=== PATIENT | male | born 1980 | race Hispanic/Latino ===

== ENCOUNTER 2017-01-21 22:37 | Emergency (ER) | payer OTHER ==
[2017-01-21 22:47] VITALS: RESP 18; TEMP 98.8
[2017-01-21] MEDS ORDERED: Sodium Chloride 0.9% 1,000 ML IV STA (23:29)
[2017-01-21 23:35] VITALS: O2SAT 97
--- NOTE | 2017-01-21 23:46 | ED PDOC ---
HPI: Psych/Substance Abuse Time Seen by Provider: 01/21/17 22:44 Chief Complaint (Nursing): Psychiatric Evaluation Chief Complaint (Provider): Suicidal ideation, Epigastric abdominal pain, alcohol withdrawal ED Caveat: Intoxicated History Per: Patient, EMS History/Exam Limitations: no limitations Onset/Duration Of Symptoms: Days Suicide/Self Injury Attempted (Context): None Modifying Factor(s): Alcohol Severity: Severe Pain Scale Rating Of: 8 Associated Symptoms: Suicidal Thoughts, Suicidal Plan Additional History Per: Patient, Prior Records Additional Complaint(s): Patient is a 36 y/o male with a past medical history of Pancreatitis and chronic alcohol abuse, who was brought to the ED by EMS complaining of suicidal ideation, epigastric pain radiating to the back, and alcohol withdrawal. Patient was seen and evaluated by crisis at [facility] for similar symptoms , and was discharged without any medications or prescriptions before eventually calling EMS which brought him to this facility. Patient claims he did not receive any medications at [facility]. According to EMS report, patient report states only suicidal ideation as complaint. Immediately upon arrival, patient denied any suicidal ideation and rejected the EMS claim, but he eventually retracted his statement and admitted to suicidal ideation. He claims his plan was to use his belt to strangle himself, and that he has had suicidal ideation for several years. With regards to his epigastric pain, patient claims the pain comes and goes, and notes that he has a history of Pancreatitis which causes similar pain at times and pancreatic complications for past 4 years. Patient reports that he was receiving narcotics in the past for his pain and that narcotics are the only medications that help. Patient also reports 2 episodes of non-bloody vomiting earlier today and a few episodes of diarrhea. With regards to Alcohol withdrawal, patient says he drinks daily and last drank at 08:00 this morning. He reports feeling shaky, dehydrated, and anxious. I reviewed previous chart and report from [facility] on 01/21/17. PMD: Provider JOSE Past Medical History Reviewed: Historical Data, Nursing Documentation, Vital Signs Vital Signs: Last Vital Signs Temp 98.8 F 01/21/17 22:39 Pulse 104 H 01/21/17 23:35 Resp 18 01/21/17 23:35 BP 132/76 01/21/17 22:39 Pulse Ox 97 01/21/17 23:35 - Medical History PMH: Bipolar Disorder, Gastritis, HTN, Pancreatitis, Schizophrenia Denies: Chronic Kidney Disease Other PMH: Alcohol withdrawal - Surgical History Surgical History: No Surg Hx - Family History Family History: States: No Known Family Hx, Unknown Family Hx - Social History Current smoker - smoking cessation education provided: Yes (< 10 cigarettes daily, smoker for 20 years) Alcohol: Occasional Drugs: Denies - Immunization History Hx Tetanus Toxoid Vaccination: No Hx Influenza Vaccination: No Hx Pneumococcal Vaccination: No - Home Medications Home Medications: Ambulatory Orders Medication Instructions Recorded Clonidine HCl [Catapres] 0.2 tab PO BID 01/03/17 Lisinopril [Zestril] 40 tab PO DAILY 01/03/17 Multivitamins [Hexavitamin] 1 tab PO DAILY tab 01/08/17 Thiamine [Vitamin B1 Tab] 100 mg PO DAILY #30 tab 01/08/17 - Allergies Allergies/Adverse Reactions: Allergies Allergy/AdvReac Type Severity Reaction Status Date / Time No Known Allergies Allergy Verified 01/21/17 18:43 Review of Systems ROS Statement: Except As Marked, All Systems Reviewed And Found Negative Gastrointestinal: Positive for: Vomiting, Abdominal Pain (epigastric), Diarrhea. Negative for: Hematemesis Psych: Positive for: Suicidal ideation, Withdrawal (Alcohol withdrawal) Physical Exam - Reviewed Nursing Documentation Reviewed: Yes Vital Signs Reviewed: Yes - Physical Exam Appears: Positive for: No Acute Distress Head Exam: Positive for: ATRAUMATIC, NORMOCEPHALIC Skin: Positive for: Normal Color, Warm, Dry Eye Exam: Positive for: Normal appearance, EOMI, PERRL ENT: Positive for: Normal ENT Inspection Neck: Positive for: Normal, Painless ROM, Supple Cardiovascular/Chest: Positive for: Tachycardia. Negative for: Murmur Respiratory: Positive for: Normal Breath Sounds. Negative for: Respiratory Distress Gastrointestinal/Abdominal: Positive for: Soft, Tenderness (Epigastric tenderness) Back: Positive for: Normal Inspection. Negative for: L CVA Tenderness, R CVA Tenderness, Vertebral Tenderness Extremity: Positive for: Normal ROM. Negative for: Pedal Edema Neurologic/Psych: Positive for: Alert, Oriented (x3), Mood/Affect (calm and cooperative). Negative for: Motor/Sensory Deficits - Laboratory Results Result Diagrams: 01/21/17 23:57 01/21/17 23:57 - ECG O2 Sat by Pulse Oximetry: 97 (RA) Pulse Ox Interpretation: Normal Medical Decision Making Medical Decision Making: Time: 23:28 Initial Impression: 1) suicidal ideation 1) abdominal pain 3) Alcohol withdrawal Differential Diagnoses: Pancreatitis, gastritis Initial Plan: -CT Abdomen/Pelvis -Alcohol Serum -Labs -Crisis Eval -Dextrose 5%/0.45% NS, Multivitamin 10ml, Folic Acid 1mg, Thiamine 100mg, IV 120 mls/hr -Librium 50mg PO -Sodium Chloride 0.9% 1,000ml, 1,000 mls/hr -Famotidine 20mg IVP -Toradol 30mg IVP -Zofran Inj 4mg IV -1:1 Obs 2330 Per crisis patient can be cleared for discharge by Dr Lopez. Scribe Attestation: Documented by Adrian Wright, acting as a scribe for Ana Campoverde MD Provider Scribe Attestation: All medical record entries made by the Scribe were at my direction and personally dictated by me. I have reviewed the chart and agree that the record accurately reflects my personal performance of the history, physical exam, medical decision making, and the department Disposition - Clinical Impression Clinical Impression: Alcohol abuse, Pancreas cyst, Alcohol intoxication, Substance abuse - Patient ED Disposition Is Patient to be Admitted: Transfer of Care Counseled Patient/Family Regarding: Studies Performed, Diagnosis - Disposition Referrals: [facility] [Outside] [facility] [Outside] Zaki Fernandez MD, PhD [Staff Provider] - Disposition: Transfer of Care Disposition Time: 00:00 Condition: STABLE Additional Instructions: follow up with your primary doctor/GI doctor in 1-2 days to further evaluate pancreas cyst return to the ED with any worsening or concerning symptoms. Instructions: Abuse of Alcohol (ED), Cyst (ED) Forms: [employer] (Japanese) Patient Signed Over To: Isaiah Ansari
[2017-01-21] MEDS ORDERED: Iohexol 300 100 ML IJ ONE (23:48)
[2017-01-21] MEDS ORDERED: Sodium Chloride 0.9% 50 ML IV ONE (23:48)
[2017-01-21] MEDS ORDERED: Multivitamin (MVI) 10 ML, Folic Acid 1 MG, Thiamine 100 MG in Dextrose 5%/0.45% NS 1,00... IV ONE (23:51)
[2017-01-22] LABS: BASO % 0.8 % (0.0-2.0); EOS # 0.1 K/uL (0.0-0.7); EOS % 2.3 % (0.0-4.0); HEMATOCRIT 44.9 % (35.0-51.0); LYMPH # 1.6 K/uL (1.0-4.3); LYMPH % 28.6 % (20.0-40.0); MEAN CELL VOLUME 93.4 fl (80.0-94.0); MEAN CORPUSCULAR HEMOGLOBIN 31.2 pg (27.0-31.0); MEAN CORPUSCULAR HGB CONC 33.4 g/dL (33.0-37.0); MEAN PLATELET VOLUME 7.5 fl (7.2-11.7); MONO # 0.4 K/uL (0.0-0.8); MONO % 6.8 % (0.0-10.0); NEUT # 3.4 K/uL (1.8-7.0); NEUT % 61.5 % (50.0-75.0); NRBC % 0.2 % (0.0-0.0); RED CELL DISTRIBUTION WIDTH 18.3 % (11.5-14.5); WHITE BLOOD COUNT 5.5 K/uL (4.8-10.8)
[2017-01-22 00:15] LABS: ALB/GLOB RATIO 1.2 (1.0-2.1); ALCOHOL SERUM 255 mg/dl (0-10); ALKALINE PHOSPHATASE 102 U/L (38-126); ALT/SGPT 28 U/L (21-72); AST/SGOT 47 U/L (17-59); BILIRUBIN,TOTAL 0.3 mg/dl (0.2-1.3); BLOOD UREA NITROGEN 7 mg/dl (9-20); CALCIUM 8.4 mg/dL (8.4-10.2); CARBON DIOXIDE 26 mmol/L (22-30); CHLORIDE 102 mmol/L (98-107); GFR AFRICAN-AMERICAN > 60; GLUCOSE,RANDOM 116 mg/dL (75-110); POTASSIUM 4.2 MMOL/L (3.6-5.0); SODIUM 145 mmol/l (132-148); TOTAL PROTEIN 7.8 G/DL (6.3-8.2)
--- NOTE | 2017-01-22 00:23 | ED PDOC ---
"- Laboratory Results Result Diagrams: 01/21/17 23:57 01/21/17 23:57 - ECG O2 Sat by Pulse Oximetry: 97 (RA) Pulse Ox Interpretation: Normal Medical Decision Making Medical Decision Making: Time: 00:00 -Patient signed out to me from Dr. Ana Campoverde -Pending CT abdomen/pelvis, if negative patient will be discharged Time: 00:52 -CT abdomen/pelvis results FINDINGS: Lower thorax: The bilateral lung bases are clear. ABDOMEN: Liver: No acute findings. Gallbladder and bile ducts: The gallbladder is only minimally distended, without calcified stones. No significant intra- or extrahepatic biliary ductal dilation. Pancreas: A 4.1 x 4.3 cm thickwalled focus of decreased attenuation is identified within the head of the pancreas. Ductal dilatation with parenchymal atrophy is identified within the body and tail of the pancreas. No surrounding inflammatory changes detected. Spleen: No acute findings. Adrenals: No acute findings. Kidneys and ureters: No acute findings. No hydronephrosis or renal calculi. No discrete solid mass. PELVIS: Bladder: No acute findings. Reproductive: No acute findings. PAULA ZELAYA | Final Radiology Report CONFIDENTIALITY STATEMENT This report is intended only for use by the referring physician, and only in accordance with law. If you received this in error, call [phone]. Page 2 of 2 Appendix: The appendix is not definitively visualized, however no pericecal inflammatory change is identified to suggest the presence of acute appendicitis. ABDOMEN and PELVIS: Stomach and bowel: No obstruction. No mucosal thickening. Peritoneum: No significant fluid collection. No free air. Lymph nodes: No pathologically enlarged lymph nodes. Vasculature: Unremarkable. Bones: No acute fracture. IMPRESSION: Cystic mass within the head of the pancreas, with distal ductal dilatation and atrophy, as detailed above. Time: 01:35 -Patient has been cleared by crisis prior to me taking over for Dr. Camopverde. Patient is stable for discharge. Clinical Impression: Cyst on Pancreas and Alcohol abuse Pt with known history of pancreatic cyst. pt instructed to follow up as outpt with GI pt tolerating po and feels better Upon provider evaluation patient is medically stable, and requires no further treatment in the ED at this time. Patient will be discharged. Counseling was provided and all questions were answered regarding diagnosis and need for follow up with primary care physician as outpatient. There is agreement to discharge plan. Return if symptoms persist or worsen. Scribe Attestation: Documented by Adrian Wright, acting as a scribe for Isaiah Ansari MD Provider Scribe Attestation: All medical record entries made by the Scribe were at my direction and personally dictated by me. I have reviewed the chart and agree that the record accurately reflects my personal performance of the history, physical exam, medical decision making, and the department course for this patient. I have also personally directed, reviewed, and agree with the discharge instructions and disposition. Disposition Counseled Patient/Family Regarding: Studies Performed, Diagnosis, Need For Followup - Clinical Impression Clinical Impression: Alcohol abuse, Pancreas cyst - POA Present On Arrival: None - Disposition Referrals: [facility] [Outside] [facility] [Outside] Zaki Fernandez MD, PhD [Staff Provider] - Disposition: Routine/Home Disposition Time: 01:00 Condition: IMPROVED Additional Instructions: follow up with your primary doctor/GI doctor in 1-2 days to further evaluate pancreas cyst return to the ED with any worsening or concerning symptoms. Instructions: Abuse of Alcohol (ED), Cyst (ED) Forms: [employer] (Latvian)"
--- NOTE | 2017-01-22 00:52 | CT ---
EXAM: CT Abdomen and Pelvis With Intravenous Contrast CLINICAL HISTORY: 36 years old, male; Pain; Abdominal pain TECHNIQUE: Axial computed tomography images of the abdomen and pelvis with intravenous contrast. All CT scans at this facility use one or more dose reduction techniques, viz.: automated exposure control; ma/kV adjustment per patient size (including targeted exams where dose is matched to indication; i.e. head); or iterative reconstruction technique. Coronal and sagittal reformatted images were created and reviewed. CONTRAST: 95 mL of OMNIPAQUE 300 administered intravenously. COMPARISON: No relevant prior studies available. FINDINGS: Lower thorax: The bilateral lung bases are clear. ABDOMEN: Liver: No acute findings. Gallbladder and bile ducts: The gallbladder is only minimally distended, without calcified stones. No significant intra- or extrahepatic biliary ductal dilation. Pancreas: A 4.1 x 4.3 cm thickwalled focus of decreased attenuation is identified within the head of the pancreas. Ductal dilatation with parenchymal atrophy is identified within the body and tail of the pancreas. No surrounding inflammatory changes detected. Spleen: No acute findings. Adrenals: No acute findings. Kidneys and ureters: No acute findings. No hydronephrosis or renal calculi. No discrete solid mass. PELVIS: Bladder: No acute findings. Reproductive: No acute findings. Appendix: The appendix is not definitively visualized, however no pericecal inflammatory change is identified to suggest the presence of acute appendicitis. ABDOMEN and PELVIS: Stomach and bowel: No obstruction. No mucosal thickening. Peritoneum: No significant fluid collection. No free air. Lymph nodes: No pathologically enlarged lymph nodes. Vasculature: Unremarkable. Bones: No acute fracture. IMPRESSION: Cystic mass within the head of the pancreas, with distal ductal dilatation and atrophy, as detailed above.
[2017-01-22 01:39] VITALS: BP 126/87; PULSE 86
== END 2017-01-22 01:55 | disposition home or self-care (01) ==
LOC: H.ER 22:37
DX: F10.129 Alcohol abuse with intoxication, unspecified (principal); K86.2 Cyst of pancreas; R45.851 Suicidal ideations
CPT/HCPCS: 74177; 80053; 80320; 80324; 80345; 80346; 80349; 80353; 80358; 80361; 82948; 83992; 85025; 96361; 96374; 96375; 99284; J1885; J2405; J3411; J7040; J7042; Q9967

== ENCOUNTER 2017-01-23 23:54 | Inpatient (IN) | payer MEDICAID, OTHER ==
--- NOTE | 2017-01-24 00:20 | ED PDOC ---
Psych Transfer Clearance - Clearance Statement Clearance Statement: Dr. Clark reviewed vital signs, lab results and transfer papers and deemed patient clinically stable for psychiatric admission.
[2017-01-24] MEDS ORDERED: Magnesium Hydroxide Susp 30 ml UD PO PRN (02:00)
[2017-01-24] MEDS ORDERED: Alum-Mag Hydrox-Simethicone Susp (30 mL) PO PRN (02:00)
[2017-01-24] MEDS ORDERED: DiphenhydrAMINE 50 mg/ml Inj IM PRN (02:00)
--- NOTE | 2017-01-24 02:48 | PCM.BM ---
<Bessy Jaimes - Last Filed: 01/24/17 02:47> Treatment assets and liabiliti Patient Assests: cooperative, educated, insightful, motivated, resourceful, self -reliant, ADL independent, negotiates basic needs Patient Liabilities: live alone, physical pain, substance abuse, medical problems - Milieu Protocol Maintain good personal hygiene: daily Encourage regular showers, other Remind patient to perform daily oral care Conduct patient checks and document Observation sheet: Q15 minutes Maintain personal safety: every shift Educate patient to report safety concerns to staff, every shift Monitor environment for contraband/sharps Medication safety: Monitor for expected outcome, potential side effects: every shift, Assess barriers to learning: every shift, Assess readiness for medication education: every shift <Anthony Coats - Last Filed: 01/27/17 08:39> Family Contact Family involvement: Family/SO is involved Family contact: Patient agrees to contact, Family has been contacted by patient , Telephone contact initiated by staff Family contact name: Haily Magaña (mother) - [phone] Family contacted how many times per week?: 7 Family contact comment: Pick Up Attendant spoke with pt's mother, Haily Magaña ([phone]), to gather collateral and update her on pt's current disposition on and 01/26. Pt's mother is extremely concerned with pt's drinking and is worried that it will kill him if pt does not stp using alcohol. Pt's mother already know that pt's drinking is having an effect on his health as exhibited by his current pancreatic cyst. Pt's mother reported that pt has either lost his job or will lose it after this hospitalization due to poor attendance. Pt's mother reported that she has cut pt off financially and will not allow the pt to reside with her as he steals from her and has pawned her jewelry in the past. Pt's mother reported that he does have a girlfriend who resides mainly in [place] and that they have a very toxic relationship. Pt's mother reported that pt will threaten suicide if the girlfriend ever leaves him. Pt's mother fears that if this relationship ends pt will drink enough that he might kill himself. Pt's mother is concerned because pt has had suicide attempts in the past and reported that pt received ECT at [facility] in the past. Pt's mother reported thta pt has never seemed outwardly severely depressed despite the fact that he received ECT. Pt's mother seems unable to come to terms with the fact that her son is help rejecting and does not understand that no one can force him to stay and receive treatment unless he wants to. Pt's mother was informed that pt was referred to residential rehabs and is being put on waiting lists. - Goals for Treatment Patient goals for treatment: Pt seems ambivalent toward treatment and stated that he would like help to stop his alcohol use, yet makes excuses why he cannot enter into rehab and has signed a 48 hour notice despite still experiencing withdrawal symptoms. Patient's family/SO goals for treatment: Pt's mother would like pt to enter into a long-term rehab. She is fearful that if he does not stop drinking that he will . Discharge/Continuing Care - Education Needs Education Needs: Family Medication, Family Diagnosis/Disease Process, Family Placement options, Patient Medication, Patient Diagnosis/Disease Process, Patient Coping Skills, Patient Anger Management skills, Patient Placement options, Patient Personal Hygiene/Grooming, Patient Aftercare Safety Plan - Discharge Discharge Criteria: Tolerates medication w/o severe side effects, Free of Suicidal thoughts, Free of agitation, Normal sleep pattern, No longer exhibiting s/s of withdrawal, Reduction of target symptoms Discharge to:: Home - Treatment Team Participation Patient/Family/SO Statement: 01/27/17 08:37 Pt was agreeable to rescinding his 48 hour notice once staff spoke to him about staying through the weekend to continue to reduce withdrawal symptoms and try to set up more formal aftercare plan. Pt was agreeable but was adamant that he would not stay past Sunday. Discussed with Family/SO: Yes Was Patient/Family/SO present at Treatment Team Meeting: Yes
[2017-01-24 09:54] LABS: CHOLESTEROL 168 mg/dL (0-199)
--- NOTE | 2017-01-24 15:52 | CP.PCM.CON ---
History of Present Illness - History of Present Illness History of Present Illness: Juancarlos Segura is a pleasant 36 yo male with pmhx of alcohol abuse, Pancreatic cyst, Pancreatitis, HTN was transferred from [facility] for concurrent management of his epigastric pain secondary to pancreatic cyst and alcohol withdrawal. He was seen at bedside, resting. He shares of N/V with epigastric pain. 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 Fhx: HTN, DM, mom with skin CA Review of Systems - Gastrointestinal Gastrointestinal: Abdominal Pain, Nausea, Vomiting Additional comments: epigastric Past Patient History - Past Medical History & Family History Past Medical History?: Yes - Past Social History Smoking Status: Light Smoker < 10 Cigarettes Daily 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 Alcohol: > 2 Drinks/Day Home Situation {Lives}: Roommate - CARDIAC Hx Hypertension: Yes - PULMONARY Hx Respiratory Disorders: No - NEUROLOGICAL Hx Neurological Disorder: No - HEENT Hx HEENT Problems: No - RENAL Hx Chronic Kidney Disease: No - ENDOCRINE/METABOLIC Hx Endocrine Disorders: No - HEMATOLOGICAL/ONCOLOGICAL Hx Blood Transfusions: No - INTEGUMENTARY Hx Dermatological Problems: No - MUSCULOSKELETAL/RHEUMATOLOGICAL Hx Falls: No - GASTROINTESTINAL Hx Gastritis: Yes Hx Pancreatitis: Yes Other/Comment: pancreatic cyst - GENITOURINARY/GYNECOLOGICAL Hx Genitourinary Disorders: No - PSYCHIATRIC Hx Substance Use: No - SURGICAL HISTORY Hx Surgeries: No - ANESTHESIA Hx Anesthesia: No Hx Anesthesia Reactions: No Hx Malignant Hyperthermia: No Meds Allergies/Adverse Reactions: Allergies Allergy/AdvReac Type Severity Reaction Status Date / Time No Known Allergies Allergy Verified 01/21/17 18:43 - Medications Medications: Current Medications Acetaminophen (Tylenol 325mg Tab) 650 mg PO Q4 PRN PRN Reason: Pain, moderate (4-7) Al Hydrox/Mg Hydrox/Simethicone (Maalox Plus 30 Ml) 30 ml PO Q4 PRN PRN Reason: Dyspepsia Chlordiazepoxide (Librium) 50 mg PO Q8 EVELINA PRN Reason: Protocol Last Admin: 01/24/17 10:44 Dose: 50 mg Chlordiazepoxide (Librium) 25 mg PO Q6 PRN PRN Reason: Systolic Blood Pressure Last Admin: 01/24/17 13:02 Dose: 25 mg Diphenhydramine HCl (Benadryl) 50 mg IM Q6 PRN PRN Reason: Extrapyramidal S/S Unable PO Diphenhydramine HCl (Benadryl) 50 mg PO Q6 PRN PRN Reason: Extrapyramidal Symptoms Diphenhydramine HCl (Benadryl) 50 mg PO HS PRN PRN Reason: Sleep Fluoxetine HCl (Prozac) 40 mg PO DAILY EVELINA Last Admin: 01/24/17 13:02 Dose: 40 mg Haloperidol (Haldol) 5 mg PO Q4 PRN PRN Reason: Agitation Haloperidol Lactate (Haldol) 5 mg IM Q4 PRN PRN Reason: Agitation, Unable to Take PO Magnesium Hydroxide (Milk Of Magnesia) 30 ml PO HS PRN PRN Reason: Constipation Physical Exam - Constitutional Appears: Well - Eye Exam Eye Exam: EOMI, Normal appearance - Respiratory Exam Respiratory Exam: Clear to Auscultation Bilateral, NORMAL BREATHING PATTERN - Cardiovascular Exam Cardiovascular Exam: REGULAR RHYTHM, +S1, +S2 - GI/Abdominal Exam GI & Abdominal Exam: Normal Bowel Sounds, Soft, Tenderness Additional comments: epigastric tenderness - Extremities Exam Extremities exam: Negative for: calf tenderness - Neurological Exam Neurological exam: Alert, CN II-XII Intact, Oriented x3 - Psychiatric Exam Psychiatric exam: Normal Affect, Normal Mood Results - Vital Signs Recent Vital Signs: Last Vital Signs Temp 97.5 F L 01/24/17 09:00 Pulse 85 01/24/17 09:00 Resp 18 01/24/17 09:00 BP 151/118 H 01/24/17 09:00 Pulse Ox 98 01/23/17 23:59 - Labs Result Diagrams: 01/24/17 15:50 Labs: Laboratory Results - last 24 hr 01/24/17 09:30 Triglycerides 109 Cholesterol 168 LDL Cholesterol Direct 64 HDL Cholesterol 91 H Assessment & Plan - Assessment and Plan (Free Text) Plan: Juancarlos Segura is a pleasant 36 yo male with pmhx of alcohol abuse, Pancreatic cyst, Pancreatitis, HTN was transferred from [facility] for concurrent management of his epigastric pain secondary to pancreatic cyst and alcohol withdrawal. 1) Epigastric pain -history of pancreatic cyst and pancreatitis -Lipase: level 66 -CBC ordered -Stable; no signs of pancreatitis 2) HTN -Metoprolol; Pt states not taking clonidine for 1 month. -continue monitoring vitals -2/2 alcohol withdrawal 3) Alcohol withdrawal -Librium -Continue to monitor signs and symptoms. Guru Wang, PGY1
[2017-01-24 16:26] LABS: HEMATOCRIT 42.4 % (35.0-51.0); MEAN CELL VOLUME 95.4 fl (80.0-94.0); MEAN CORPUSCULAR HGB CONC 32.5 g/dL (33.0-37.0); RED CELL DISTRIBUTION WIDTH 17.7 % (11.5-14.5)
--- NOTE | 2017-01-24 18:25 | PCM.PSYCH ---
Initial Psychiatric Evaluation - Initial Psychiatric Evaluation Type of Admission: Voluntary Chief Complaint (in patient's own words): I have thoughts to hurt myself i need help Patient's Reaction to Hospitalization: patient requesting help History of Present Illness and Precipitating Events: patient with previous diagnosis of depression anxiety and alcohol use disorder patient has been increasingly depressed relapsed on alcohol using three pints of vodka daily unable to function in his job patient,patient also was having severe pain due to chronic pancreatitis he started to have suicidal ideations with plan to overdose , presented to [facility] seeking help denied manic symptoms denied psychotic symptoms Current Medications: Active Medications Generic Name Dose Route Start Last Admin Trade Name Freq PRN Reason Stop Dose Admin Acetaminophen 650 mg 01/24/17 02:00 Tylenol 325mg Tab PO Q4 PRN Pain, moderate (4-7) Al Hydrox/Mg Hydrox/Simethicone 30 ml 01/24/17 02:00 Maalox Plus 30 Ml PO Q4 PRN Dyspepsia Chlordiazepoxide 50 mg 01/24/17 10:45 01/24/17 17:30 Librium PO 50 mg Q8 EVELINA Administration Protocol Chlordiazepoxide 25 mg 01/24/17 10:38 01/24/17 13:02 Librium PO 25 mg Q6 PRN Administration Systolic Blood Pressure Diphenhydramine HCl 50 mg 01/24/17 02:00 Benadryl IM Q6 PRN Extrapyramidal S/S Unable PO Diphenhydramine HCl 50 mg 01/24/17 02:00 Benadryl PO Q6 PRN Extrapyramidal Symptoms Diphenhydramine HCl 50 mg 01/24/17 02:03 Benadryl PO HS PRN Sleep Fluoxetine HCl 40 mg 01/24/17 11:00 01/24/17 13:02 Prozac PO 40 mg DAILY EVELINA Administration Haloperidol 5 mg 01/24/17 02:00 Haldol PO Q4 PRN Agitation Haloperidol Lactate 5 mg 01/24/17 02:00 Haldol IM Q4 PRN Agitation, Unable to Take PO Lisinopril 40 mg 01/25/17 09:00 Zestril PO DAILY [facility]ELINA Magnesium Hydroxide 30 ml 01/24/17 02:00 Milk Of Magnesia PO HS PRN Constipation Metoprolol Tartrate 25 mg 01/24/17 21:00 Lopressor PO Q12 EVELINA Thiamine HCl 100 mg 10/12/17 09:00 Vitamin B1 Tab PO DAILY EVELINA Tramadol HCl 50 mg 01/24/17 16:38 Ultram PO Q6 PRN Pain, moderate (4-7) Past Psychiatric History - Past Psychiatric History Prior Psychiatric Treatment: multiple inpatient admissions for depression and alcohol rehab History of Abuse: deneid History of ETOH/Drug Use: history of alcohol use since age 18 history of black out DT and withdrawal seizures Pertinent Medical Hx (Current Medical&Sleep Prob, Allergies): Allergies Allergy/AdvReac Type Severity Reaction Status Date / Time No Known Allergies Allergy Verified 01/21/17 18:43 Clonidine HCl [Catapres] 0.2 tab PO BID 01/03/17 Lisinopril [Zestril] 40 tab PO DAILY 01/03/17 Multivitamins [Hexavitamin] 1 tab PO DAILY tab 01/08/17 Thiamine [Vitamin B1 Tab] 100 mg PO DAILY #30 tab 01/08/17 Mental Status Examination - Personal Presentation Personal Presentation: Looks older than stated age - Affect Affect: Depressed - Motor Activity Motor Activity: Psychomotor Retardation - Reliability in Providing Information Reliability in Providing Information: Fair - Speech Speech: Organized - Mood Mood: Depressed, Anxious - Formal Thought Process Formal Thought Process: No Impairment Additional comments: denied any current perceptual disturbances non elicited - Hallucinations/Delusions Additional comments: denied perceptual disturbances non elicited - Obsessions/Compulsions Obsessions: No Compulsions: No - Cognitive Functions Orientation: Person, Place Sensorium: Alert Attention/Concentration: Attentive Estimate of Intelligence: Average Judgement: Imparied, as evidence by: Lack of insight into illness Memory: Recent intact, as evidence by: Ability to recall events of the day - Risk Risk: Suicidal, Seizure, Withdrawal - Strength & Assets Inventory Strength & Assets Inventory: Employment status - Limitations Additional comments: medical problems DSM 5 DX - DSM 5 DSM 5 Diagnosis: major depression alcohol use disorder alcoho; induced mood disorder with depressive features - Recommended/Plan of Treatment Treatment Recommendations and Plan of Treatment: patient will be started on librium protocol for risk of withdrawal prozac 40 mg will be monitored for psychopharmacological effects and side effect profile patient will be offered inpatient rehab on discharge Prognosis: guarded Discharge Plan and Discharge Criteria: patient mood stable
[2017-01-25 01:29] VITALS: O2SAT 99
--- NOTE | 2017-01-25 18:38 | PCM.PYCHPN ---
Psychiatric Progress Note - Psychiatric Progress Note Patient seen today, length of contact: patient evaluated discussed with team chart reviewed 30min Patient Chief Complaint: I only need help with my medical problem i do not need to be here Problems Identified/Issues Discussed: patient currently on librium protocol, no symptoms or signs of alcohol with drawal, seen on unit attending groups patient however denied any current thought to hurt self denied suicidal or homicidal ideations patient reported concerned in reference to the pancreatic cyst , patient has been evaluated by medical consult and at current time no symptoms of acute pancreatitis and no recommendation for GIT consult labs reviewed lipase 66 advised patient GIT for outpatient follow up consult on discharge advised patient need for inpatient alcohol rehab on discharge motivational interviewing provided and patient educated about the risk of relapse on alcohol patient denied any current perceptual disturbances DSM 5 Symptoms Update: major depression alcohol use disorder alcoho;l induced mood disorder with depressive features Medication Change: Yes (librium prrotocol taper) Medical Record Reviewed: Yes Mental Status Examination - Cognitive Function Orientation: Person, Place Memory: Intact Attention: WNL Concentration: WNL Association: WNL Fund of Knowledge: WNL - Mood Mood: Neutral - Affect Affect: Constricted, Depressed - Formal Thought Process Formal Thought Process: No Impairment Psychotic Thoughts and Behaviors: patient denied any current psychotic symptoms non elicited - Suicidal Ideation Suicidal Ideation: No - Homicidal Ideation Homicidal Ideation: No Goal/Treatment Plan - Goal/Treatment Plan Need for Continued Stay: Discharge may exacerbated symptoms Progress Toward Problem(s) and Goals/Treatment Plan: patient will be continued on librium protocol for risk of withdrawal with gradual taper prozac 40 mg will be monitored for psychopharmacological effects and side effect profile patient will be offered inpatient rehab on discharge
--- NOTE | 2017-01-26 13:41 | CP.PCM.PN ---
Objective - Vital Signs/Intake and Output Vital Signs (last 24 hours): Temp Pulse Resp BP Pulse Ox 97.0 F L 64 16 146/98 H 99 01/26/17 09:00 01/26/17 09:43 01/26/17 09:00 01/26/17 09:43 01/25/17 01:10 - Medications Medications: Current Medications Acetaminophen (Tylenol 325mg Tab) 650 mg PO Q4 PRN PRN Reason: Pain, moderate (4-7) Al Hydrox/Mg Hydrox/Simethicone (Maalox Plus 30 Ml) 30 ml PO Q4 PRN PRN Reason: Dyspepsia Chlordiazepoxide (Librium) 25 mg PO Q8@0600,1400,2200 [facility] Last Admin: 01/26/17 06:49 Dose: 25 mg Chlordiazepoxide (Librium) 25 mg PO Q6 PRN PRN Reason: Anxiety Last Admin: 01/25/17 19:58 Dose: 25 mg Diphenhydramine HCl (Benadryl) 50 mg IM Q6 PRN PRN Reason: Extrapyramidal S/S Unable PO Diphenhydramine HCl (Benadryl) 50 mg PO Q6 PRN PRN Reason: Extrapyramidal Symptoms Diphenhydramine HCl (Benadryl) 50 mg PO HS PRN PRN Reason: Sleep Last Admin: 01/25/17 21:06 Dose: 50 mg Fluoxetine HCl (Prozac) 40 mg PO DAILY [facility] Last Admin: 01/26/17 09:44 Dose: 40 mg Haloperidol (Haldol) 5 mg PO Q4 PRN PRN Reason: Agitation Haloperidol Lactate (Haldol) 5 mg IM Q4 PRN PRN Reason: Agitation, Unable to Take PO Lisinopril (Zestril) 40 mg PO DAILY [facility] Last Admin: 01/26/17 09:43 Dose: 40 mg Magnesium Hydroxide (Milk Of Magnesia) 30 ml PO HS PRN PRN Reason: Constipation Metoprolol Tartrate (Lopressor) 50 mg PO Q12 [facility] Last Admin: 01/26/17 09:42 Dose: 50 mg Thiamine HCl (Vitamin B1 Tab) 100 mg PO DAILY [facility] Last Admin: 01/26/17 09:43 Dose: 100 mg Tramadol HCl (Ultram) 50 mg PO Q6 PRN PRN Reason: Pain, moderate (4-7) Last Admin: 01/26/17 13:13 Dose: 50 mg Trimethobenzamide HCl (Tigan) 300 mg PO Q8 PRN PRN Reason: Nausea/Vomiting Last Admin: 01/26/17 13:14 Dose: 300 mg - Labs Labs: 01/24/17 15:50
--- NOTE | 2017-01-26 13:44 | CP.PCM.CON ---
History of Present Illness - History of Present Illness History of Present Illness: Pt seen and examined at bedside. He just finished breakfast. He shares of abdominal pain that has been consistent. He shares of nausea and vomiting but not since last night. Denies: blurred vision, CP/SOB/Dizziness. 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 [employer] Alcohol: > 2 Drinks/Day Home Situation {Lives}: Roommate - CARDIAC Hx Hypertension: Yes - PULMONARY Hx Respiratory Disorders: No - NEUROLOGICAL Hx Neurological Disorder: No - HEENT Hx HEENT Problems: No - RENAL Hx Chronic Kidney Disease: No - ENDOCRINE/METABOLIC Hx Endocrine Disorders: No - HEMATOLOGICAL/ONCOLOGICAL Hx Blood Transfusions: No - INTEGUMENTARY Hx Dermatological Problems: No - MUSCULOSKELETAL/RHEUMATOLOGICAL Hx Falls: No - GASTROINTESTINAL Hx Gastritis: Yes Hx Pancreatitis: Yes Other/Comment: pancreatic cyst - GENITOURINARY/GYNECOLOGICAL Hx Genitourinary Disorders: No - PSYCHIATRIC Hx Substance Use: No - SURGICAL HISTORY Hx Surgeries: No - ANESTHESIA Hx Anesthesia: No Hx Anesthesia Reactions: No Hx Malignant Hyperthermia: No Meds Allergies/Adverse Reactions: Allergies Allergy/AdvReac Type Severity Reaction Status Date / Time No Known Allergies Allergy Verified 01/21/17 18:43 - Medications Medications: Current Medications Acetaminophen (Tylenol 325mg Tab) 650 mg PO Q4 PRN PRN Reason: Pain, moderate (4-7) Al Hydrox/Mg Hydrox/Simethicone (Maalox Plus 30 Ml) 30 ml PO Q4 PRN PRN Reason: Dyspepsia Chlordiazepoxide (Librium) 25 mg PO Q8@0600,1400,2200 [facility] Last Admin: 01/26/17 06:49 Dose: 25 mg Chlordiazepoxide (Librium) 25 mg PO Q6 PRN PRN Reason: Anxiety Last Admin: 01/25/17 19:58 Dose: 25 mg Diphenhydramine HCl (Benadryl) 50 mg IM Q6 PRN PRN Reason: Extrapyramidal S/S Unable PO Diphenhydramine HCl (Benadryl) 50 mg PO Q6 PRN PRN Reason: Extrapyramidal Symptoms Diphenhydramine HCl (Benadryl) 50 mg PO HS PRN PRN Reason: Sleep Last Admin: 01/25/17 21:06 Dose: 50 mg Fluoxetine HCl (Prozac) 40 mg PO DAILY [facility] Last Admin: 01/26/17 09:44 Dose: 40 mg Haloperidol (Haldol) 5 mg PO Q4 PRN PRN Reason: Agitation Haloperidol Lactate (Haldol) 5 mg IM Q4 PRN PRN Reason: Agitation, Unable to Take PO Lisinopril (Zestril) 40 mg PO DAILY [facility] Last Admin: 01/26/17 09:43 Dose: 40 mg Magnesium Hydroxide (Milk Of Magnesia) 30 ml PO HS PRN PRN Reason: Constipation Metoprolol Tartrate (Lopressor) 50 mg PO Q12 [facility] Last Admin: 01/26/17 09:42 Dose: 50 mg Thiamine HCl (Vitamin B1 Tab) 100 mg PO DAILY [facility] Last Admin: 01/26/17 09:43 Dose: 100 mg Tramadol HCl (Ultram) 50 mg PO Q6 PRN PRN Reason: Pain, moderate (4-7) Last Admin: 01/26/17 13:13 Dose: 50 mg Trimethobenzamide HCl (Tigan) 300 mg PO Q8 PRN PRN Reason: Nausea/Vomiting Last Admin: 01/26/17 13:14 Dose: 300 mg Physical Exam - Eye Exam Eye Exam: EOMI, Normal appearance - Respiratory Exam Respiratory Exam: Clear to Auscultation Bilateral, NORMAL BREATHING PATTERN - Cardiovascular Exam Cardiovascular Exam: REGULAR RHYTHM - GI/Abdominal Exam GI & Abdominal Exam: Normal Bowel Sounds, Soft - Extremities Exam Extremities exam: Negative for: calf tenderness Results - Vital Signs Recent Vital Signs: Last Vital Signs Temp 97.0 F L 01/26/17 09:00 Pulse 64 01/26/17 09:43 Resp 16 01/26/17 09:00 BP 146/98 H 01/26/17 09:43 Pulse Ox 99 01/25/17 01:10 - Labs Result Diagrams: 01/24/17 15:50 Assessment & Plan - Assessment and Plan (Free Text) Plan: Juancarlos Segura is a pleasant 36 yo male with pmhx of alcohol abuse, Pancreatic cyst, Pancreatitis, HTN was transferred from [facility] for concurrent management of his epigastric pain secondary to pancreatic cyst and alcohol withdrawal. 1) Epigastric pain -history of pancreatic cyst and pancreatitis -Lipase: level 66 -Stable; no signs of pancreatitis 2) HTN -Metoprolol -Pt states not taking clonidine for 1 month. -continue monitoring vitals -2/2 alcohol withdrawal 3) Alcohol withdrawal -Librium -Continue to monitor signs and symptoms. Guru Wang, PGY1
--- NOTE | 2017-01-26 14:52 | PCM.PYCHPN ---
Psychiatric Progress Note - Psychiatric Progress Note Patient seen today, length of contact: patient evaluated discussed with team chart reviewed 30min Patient Chief Complaint: I AM WILLING TO STAY MAY BE YOU CAN HELP ME TO GET INTO REHAB Problems Identified/Issues Discussed: patient currently on librium protocol, no symptoms or signs of alcohol withdrawal, seen on unit attending groups patient denied any current thought to hurt self denied suicidal or homicidal ideations met with patient in treatment team advised patient need for inpatient alcohol rehab on discharge motivational interviewing provided and patient educated about the risk of relapse on alcohol patient denied any current perceptual disturbances no reported current side effects of medications Medication Change: No (librium prrotocol taper) Medical Record Reviewed: Yes Mental Status Examination - Cognitive Function Orientation: Person, Place Memory: Intact Attention: WNL Concentration: WNL Association: WNL Fund of Knowledge: WNL - Mood Mood: Anxious, Neutral - Affect Affect: Constricted - Speech Speech: Appropriate - Formal Thought Process Formal Thought Process: No Impairment Psychotic Thoughts and Behaviors: patient denied any current psychotic symptoms, non elicited - Suicidal Ideation Suicidal Ideation: No - Homicidal Ideation Homicidal Ideation: No Goal/Treatment Plan - Goal/Treatment Plan Need for Continued Stay: Discharge may exacerbated symptoms Progress Toward Problem(s) and Goals/Treatment Plan: patient will be continued on librium protocol for risk of withdrawal with gradual taper prozac 40 mg will be monitored for psychopharmacological effects and side effect profile patient will be offered inpatient rehab on discharge
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
[2017-01-28 13:34] VITALS: RESP 16
--- NOTE | 2017-01-28 18:49 | PCM.PYCHPN ---
Psychiatric Progress Note - Psychiatric Progress Note Patient seen today, length of contact: patient evaluated discussed with team chart reviewed 30min Patient Chief Complaint: was feeling nervous was drinking-feeling less anxious-reports was seen by medical doctor today related to reported cyst on pancreas-reports does not want to take tylenol for fears of effects on liver and etoh. reports sleeping and eating well. pt is seen in milieu with select peers. noted to be rising, sitting and walking unassisted. Problems Identified/Issues Discussed: alteration mood alteration in coping etoh use potential withdrawal Medical Problems: per chart-pt seen by family medicine Diagnostic Results: per psychiatry per medicine per nursing per social media content manager DSM 5 Symptoms Update: alteration mood alteration in coping substance use: etoh Medication Change: Yes (librium prrotocol taper) Medical Record Reviewed: Yes Consults ordered or reviewed: hospitalist Mental Status Examination - Cognitive Function Orientation: Person, Place Memory: Intact Attention: WNL Concentration: WNL Association: WNL Fund of Knowledge: WN Decription of patient's judgement and insights: impaired - Mood Mood: Anxious, Neutral - Affect Affect: Constricted - Speech Speech: Appropriate - Formal Thought Process Formal Thought Process: No Impairment - Suicidal Ideation Suicidal Ideation: No - Homicidal Ideation Homicidal Ideation: No Goal/Treatment Plan - Goal/Treatment Plan Need for Continued Stay: Discharge may exacerbated symptoms Progress Toward Problem(s) and Goals/Treatment Plan: inpt milieu adjust meds per status vital signs and clinical observation per protocol and per clinical status librium taper: 25mg po q12hrs discontinue prn librium discharge planning in progress Estimated Date of D/C: 01/30/17 - Smoking Cessation Smoking Cessation Initiated: Yes
[2017-01-29 08:40] VITALS: BP 137/94; PULSE 63
--- NOTE | 2017-01-29 09:30 | CP.PCM.PN ---
Subjective - Date & Time of Evaluation Date of Evaluation: 01/29/17 Time of Evaluation: 09:27 - Subjective Subjective: 36 y/o male seen and evaluated at bedside this morning. Patient appears in NAD and is AAOx3. Patient denies of any acute overnight events. Patient states that he had an episode of vomiting yesterday but denies of any recent F/C/shortness of breath, chest pain, diarrhea, headache. Patient states that he has chronic abdominal pain but denies of any other complains. Patient states that the abdominal pain is very common for him. Patient states that he is going home today and he has an appointment with his GI doctor tomorrow. Objective - Vital Signs/Intake and Output Vital Signs (last 24 hours): Temp Pulse Resp BP Pulse Ox 97.3 F L 63 16 137/94 H 99 01/28/17 09:00 01/29/17 08:39 01/28/17 09:00 01/29/17 08:39 01/25/17 01:10 - Medications Medications: Current Medications Al Hydrox/Mg Hydrox/Simethicone (Maalox Plus 30 Ml) 30 ml PO Q4 PRN PRN Reason: Dyspepsia Chlordiazepoxide (Librium) 25 mg PO Q12 [facility] Last Admin: 01/29/17 08:38 Dose: 25 mg Diphenhydramine HCl (Benadryl) 50 mg IM Q6 PRN PRN Reason: Extrapyramidal S/S Unable PO Diphenhydramine HCl (Benadryl) 50 mg PO Q6 PRN PRN Reason: Extrapyramidal Symptoms Diphenhydramine HCl (Benadryl) 50 mg PO HS PRN PRN Reason: Sleep Last Admin: 01/28/17 22:01 Dose: 50 mg Fluoxetine HCl (Prozac) 40 mg PO DAILY [facility] Last Admin: 01/28/17 09:42 Dose: 40 mg Haloperidol (Haldol) 5 mg PO Q4 PRN PRN Reason: Agitation Haloperidol Lactate (Haldol) 5 mg IM Q4 PRN PRN Reason: Agitation, Unable to Take PO Ibuprofen (Motrin Tab) 400 mg PO Q6 PRN PRN Reason: Pain, Mild (1-3) Lisinopril (Zestril) 40 mg PO DAILY [facility] Last Admin: 01/29/17 08:39 Dose: 40 mg Magnesium Hydroxide (Milk Of Magnesia) 30 ml PO HS PRN PRN Reason: Constipation Metoprolol Tartrate (Lopressor) 50 mg PO Q12 [facility] Last Admin: 01/29/17 08:38 Dose: 50 mg Nicotine (Nicoderm Cq) 1 patch TD DAILY [facility] Last Admin: 01/29/17 08:13 Dose: 1 patch Thiamine HCl (Vitamin B1 Tab) 100 mg PO DAILY [facility] Last Admin: 01/29/17 08:38 Dose: 100 mg Trimethobenzamide HCl (Tigan) 300 mg PO Q8 PRN PRN Reason: Nausea/Vomiting Last Admin: 01/28/17 16:57 Dose: 300 mg - Labs Labs: 01/24/17 15:50 - Constitutional Appears: Well, Non-toxic, No Acute Distress - Head Exam Head Exam: ATRAUMATIC - Eye Exam Eye Exam: EOMI, Normal appearance - ENT Exam ENT Exam: Mucous Membranes Moist - Neck Exam Neck Exam: Full ROM, Normal Inspection - Respiratory Exam Respiratory Exam: Clear to Ausculation Bilateral, NORMAL BREATHING PATTERN - Cardiovascular Exam Cardiovascular Exam: REGULAR RHYTHM - GI/Abdominal Exam GI & Abdominal Exam: Soft, Normal Bowel Sounds Additional comments: Tenderness present during deep palpation in RUQ - Extremities Exam Extremities Exam: Full ROM, Normal Inspection - Back Exam Back Exam: NORMAL INSPECTION - Neurological Exam Neurological Exam: Alert, Awake, Normal Gait, Oriented x3 - Psychiatric Exam Psychiatric exam: Normal Affect, Normal Mood - Skin Skin Exam: Dry, Intact, Normal Color, Warm Assessment and Plan - Assessment and Plan (Free Text) Assessment: 36 y/o male with PMHx of alcohol abuse, Pancreatic cyst, Pancreatitis, HTN seen and evaluated at bedside in [facility] for concurrent management of his epigastric pain secondary to pancreatic cyst and alcohol withdrawal. Plan: 1) Epigastric pain -history of pancreatic cyst and pancreatitis -Lipase: level 66 -Stable; no signs of pancreatitis 2) HTN -Metoprolol -Pt states not taking clonidine for 1 month. -continue monitoring vitals -2/2 alcohol withdrawal 3) Alcohol withdrawal -Continue to monitor signs and symptoms.
--- NOTE | 2017-01-29 12:49 | PCM.PYCHDC ---
Mental Status Examination - Mental Status Examination Orientation: Person, Place, Situation, Time Memory: Intact Mood: Neutral Affect: Constricted Speech: Appropriate Attention: WNL Concentration: WNL Association: WNL Fund of Knowledge: WNL Formal Thought Process: No Impairment Description of patient's judgement and insight: poor insight , fair judgment Psychotic Thoughts and Behaviors: patient denied any current psychotic symptoms, non elicited Suicidal Ideation: No Current Homicidal Ideation?: No Discharge Summary - Discharge Note Reason for Hospitalization: patient with previous diagnosis of depression anxiety and alcohol use disorder patient has been increasingly depressed relapsed on alcohol using three pints of vodka daily unable to function in his job patient,patient also was having severe pain due to chronic pancreatitis he started to have suicidal ideations with plan to overdose , presented to [facility] seeking help denied manic symptoms denied psychotic symptoms Psychiatric History (includes Medical, Family, Personal Hx): multiple inpatient hospitalizations and rehab Consultations:: List each consultation separately and include: 1. Reason for request. 2. Findings. 3. Follow-up Consultations: family practice for chronic pancreatitis and pancreatic cyst Summary of Hospital Course include:: 1. Description of specific treatment plan utilized for patients during their course of treatmen. 2. Summarize the time- course for resolution of acute symptoms and/or regressed behaviors. 3. Describe issues identified and worked on during hospitalization. 4. Describe medication utilized. 5. Describe medical problems identified and treated. 6. Reassessment of suicide risk Summary of Hospital Course: patient with previous diagnosis of depression anxiety and alcohol use disorder patient has been increasingly depressed relapsed on alcohol using three pints of vodka daily unable to function in his job patient,patient also was having severe pain due to chronic pancreatitis he started to have suicidal ideations with plan to overdose , presented to [facility] seeking help denied manic symptoms denied psychotic symptoms patient on admission was started on prozac and librium protocol, monitored for signs and symptoms of alcohol withdrawal family practice consult for pancreatic cyst motivational interviewing provided and patient was educated about risk of alcohol relapse patient was referred on discharge to inpatient alcoholrehab progrm on discharge patient mental status was stable denied any suicidal or homicidal ideations - Diagnosis (1) Alcohol abuse with alcohol-induced mood disorder Current Visit: Yes Status: Chronic Priority: High - Final Diagnosis (DSM 5) Condition upon Discharge: GOOD DSM 5: alcohol use disorder alcohol induced mood disorder major depression Disposition: HOME/ ROUTINE Follow-up Treatment Plan: patient will be continued on librium protocol for risk of withdrawal with gradual taper prozac 40 mg will be monitored for psychopharmacological effects and side effect profile patient will be offered inpatient rehab on discharge Prescriptions/Medication Reconciliation: FLUoxetine [Prozac] 40 mg PO DAILY 30 Days #30 cap Pantoprazole [Protonix EC Tab] 20 mg PO DAILY 30 Days #30 ect - Smoking Cessation Smoking Cessation Medication prescribed: Yes - Antipsychotic Medications Pt discharged on 2 or more routine antipsychotic medications: No
[2017-01-29 14:14] VITALS: TEMP 97
[2017-01-30] MEDS ORDERED: Pantoprazole 20 mg EC Tab PO SCH (09:00)
== END 2017-01-29 15:11 | disposition home or self-care (01) | DRG 426 ==
LOC: H.ER 23:54 → H.PSYCH 01-24 00:17
PROVIDERS: ADMIT Psychiatry & Neurology Psychiatry; ATTEND Psychiatry & Neurology Psychiatry
PROC: GZHZZZZ Group Psychotherapy (ICD-10-PCS; principal; 2017-01-24)
PROC: GZ51ZZZ Individual Psychotherapy, Behavioral (ICD-10-PCS; 2017-01-24)
DX: F32.9 Major depressive disorder, single episode, unspecified (principal); K86.2 Cyst of pancreas; I10 Essential (primary) hypertension; F10.14 Alcohol abuse with alcohol-induced mood disorder; F10.239 Alcohol dependence with withdrawal, unspecified; E11.9 Type 2 diabetes mellitus without complications; F17.200 Nicotine dependence, unspecified, uncomplicated; G89.29 Other chronic pain; F41.8 Other specified anxiety disorders; K29.70 Gastritis, unspecified, without bleeding; Z87.19 Personal history of other diseases of the digestive system; R10.13 Epigastric pain; R11.2 Nausea with vomiting, unspecified; K86.0 Alcohol-induced chronic pancreatitis